=== PATIENT | male | born 1985 | race African-American/Black ===

== ENCOUNTER 2020-11-02 04:56 | Emergency (ER) | payer SELFPAY | END 2020-11-02 05:26 | disposition home or self-care (01) | LOC: CSHERS 04:56 | DX: T81.30XA Disruption of wound, unspecified, initial encounter (principal); L03.114 Cellulitis of left upper limb; F17.210 Nicotine dependence, cigarettes, uncomplicated | CPT/HCPCS: 99283 ==

== ENCOUNTER 2020-11-06 05:22 | Emergency (ER) | payer SELFPAY ==
[2020-11-06] MEDS ORDERED: Triple Antibiotic Oint 1 GM Packet ONE (06:09)
== END 2020-11-06 06:27 | disposition home or self-care (01) ==
LOC: CSHERS 05:22
DX: T81.30XA Disruption of wound, unspecified, initial encounter (principal); F17.210 Nicotine dependence, cigarettes, uncomplicated
CPT/HCPCS: 99283

== ENCOUNTER 2024-09-21 19:16 | Emergency (ER) | payer SELFPAY ==
[2024-09-21 20:09] LABS: Bilirubin Neg (Negative); Blood, Urine 10 (Negative); Clarity Clear (Clear); Glucose, Urine (Dipstick) Normal (Negative); Ketone, Urine Negative (Negative); Leukocyte Negative (Negative); Nitrite Negative (Negative); Protein, Urine (Dipstick) 15 mg/dl (Neg-Trace); Specific Gravity, Urine 1.025 (1.005-1.030)
[2024-09-21 20:21] LABS: Bacteria/HPF Rare-Few HPF (None Seen); CAUTI Indications for Culture Pelvic or flank pain; Mucous/LPF Rare LPF (<2+); RBC/HPF 0-3 HPF (0-3); Squamous Epithelial 0-3 HPF (0-3); Urine Culture Reflex No No; WBC/HPF 0-3 HPF (0-3)
[2024-09-21] MEDS ORDERED: Bicillin LA 2.4 MILL.UNITS/4 ML SYRINGE IM SCH (22:00)
[2024-09-22 08:33] LABS: Chlam.trachomatis by PCR,Urine Not Detected (NotDetected); GC N.gonorrhoeae PCR,UrineVOID Not Detected (NotDetected)
== END 2024-09-21 22:34 | disposition home or self-care (01) ==
LOC: CSHERS 19:16
DX: N48.5 Ulcer of penis (principal); F17.210 Nicotine dependence, cigarettes, uncomplicated
CPT/HCPCS: 81001; 87491; 87591; 96372; 99283; J0561